=== PATIENT | male | born 1980 | race Caucasian/White ===

== ENCOUNTER 2024-04-18 17:25 | Emergency (ER) | payer BC, SELFPAY ==
--- OUTSIDE RECORDS SUMMARY | 2024-04-18 17:27 | XMS_ITS | Clinical Summary ---
Author Organization [facility] Address [facility] [place] [address] Care Team Providers Care Accounts Payable Supervisor Name Role Phone New Referring, Provider Primary Care Provider Un available Allergies No known active allergies Medications dicyclomine 20 MG tablet Take 1 tablet (20 mg total) by mouth every 6 (six) hours. 20 tablet 04/09/2021 Active Family History Medical History Relation Comments Cancer Maternal Grandmother Relation Status Comments Maternal Grandmother Social History Tobacco Use Types Packs/Day Years Used Date Smoking Tobacco: Former Cigarettes Q uit: 10/09/2014 Smokeless Tobacco: Never Alcohol Use Standard Drinks/Week Comments Yes 0 (1 standard drink = 0.6 oz pur e alcohol) once a month Sex and Gender Information Value Date Recorded Sex Assigned at Not on file Legal Sex Male 4:39 PM CDT Gender Identity Not on file Sexual Orientation Not on file Last Filed Vital Signs Vital Sign Reading Time Taken Comments Blood Pressure 135/101 04/09/2021 9:14 PM EXPORT CLERK Pulse 88 04/09/2021 11:04 PM EXPORT CLERK Temperature 36.5 C (97.7 F) 04/09/2021 9:14 PM EXPORT CLERK Respiratory Rate 18 04/09/2021 11:04 PM EXPORT CLERK Oxygen Saturation 98% 04/09/2021 9:14 PM EXPORT CLERK Inhaled Oxygen Concentration - - Weight 88.7 kg (195 lb 8.8 oz) 04/09/2021 9:14 P M EXPORT CLERK Height 177.8 cm (5' 10 ) 04/09/2021 9:14 PM EXPORT CLERK Body Mass Index 28.06 04/09/2021 9:14 PM EXPORT CLERK Plan of Treatment Health Maintenance Due Date Last Done Comments Annual Physical 1984 Hepatitis C 10/01/1999 DTaP, Tdap and Td Vaccines ( 1 - Tdap) 2000 Hepatitis B Vaccines (1 of 3 - 19+ 3-dose series) 2000 COVID-19 Vaccine (2023-2 5 season) 2023 Influenza Adult (#1) 2023 HPV Vaccines Aged Out No longer eligi ble based on patient's age to complete this topic Meningococcal B Vaccine Aged Out No l onger eligible based on patient's age to complete this topic Meningococcal Vaccine Aged Out No elieser gage eligible based on patient's age to complete this topic Pneumococcal Vaccine: Pediat rics (0 to 5 Years) and At-Risk Patients (6 to 64 Years) Aged Out No longer eligible b ased on patient's age to complete this topic RSV Immunizations Under 20 Months Aged Out No longer eligible based on patient's age to complete this topic Insurance Care Teams Accounts Payable Supervisor Relationship Specialty Start Date End Date New Referring, Provider PCP - General UNKNOWN PHYSICIAN SPECIALTY 08/02/20
[2024-04-18 17:35] VITALS: BP 126/86; PULSE 72; RESP 18; TEMP 36.6; O2SAT 100
--- NOTE | 2024-04-18 17:40 | ED_ITS ---
HPI - General Adult General Chief complaint: Eye Problems Stated complaint: [place] eye RT History of Present Illness HPI narrative: Gelacio Bah Is a 43-year-old male presents today with complaints of having 3 day onset right eye irritation, pinkness to the sclera, itchiness and matted shut in the morning. He states that his daughter is just getting over pinkeye he believes that is what he has now. Denies any fevers, chills, headache, or vision change Related Data Allergies Allergy/AdvReac Type Severity Reaction Status Date / Time No Known Allergies Allergy Verified 04/18/24 17:38 Review of Systems Review of Systems: All systems reviewed & are unremarkable except as noted in HPI and below Exam Narrative: GENERAL: Well-appearing, well-nourished, and in no acute distress. HEAD: Normocephalic, atraumatic. EYES: PERRLA and EOMI, slight injected conjunctiva and watery discharge to the right eye / ENT: Nares clear, no rhinorrhea or epistaxis. Mucous membranes moist. Oropharynx without tonsillar hypertrophy exudate or other lesions. Bilateral T Ms pearly cook nonbulging NECK: Supple. No adenopathy or masses. No carotid bruits or JVD CHEST: Clear to auscultation. No respiratory distress. No wheezes rales or rhonchi HEART: Regular rate and rhythm. No murmur heard. Normal peripheral pulses. EXTREMITIES: Normal range of motion. No edema. SKIN: Warm, dry, no rash. NEURO: No focal deficits. Alert and oriented x3. PSYCH: Normal mood and affect. Course Course Level of Care: Express Care Visit Vital Signs Vital signs: Vital Signs Temperature 36.6 C 04/18/24 17:35 Pulse Rate 72 04/18/24 17:35 Respiratory Rate 04/18/24 17:35 Blood Pressure 126/86 04/18/24 17:35 Pulse Oximetry 100 04/18/24 17:35 Oxygen Delivery Room Air 04/18/24 17:35 Temperature 36.6 C 04/18/24 17:35 Pulse Rate 72 04/18/24 17:35 Respiratory Rate 18 04/18/24 17:35 Blood Pressure 126/86 04/18/24 17:35 Pulse Oximetry 100 04/18/24 17:35 Oxygen Delivery Room Air 04/18/24 17:35 Medical Decision Making MDM Narrative Medical decision making narrative: 43 y/o Male who presents with complaints of right eye irritation mild discomfort drainage matted chest vest 3 days similar to his daughter's pinkeye she just is getting over with today. Denies any vision changes denies headache rates discomfort at a 4/10 EOM intact pupils equal reactive mild injected conjunctiva on the right eye. plan to start polymyxin q3 hours while awake He is agreeable to this plan and denies needing anything further. Medical Records Medical records reviewed: Yes I reviewed the external patient's medical records. Vital Signs Vital Signs: Vital Signs Temperature 36.6 C 04/18/24 17:35 Pulse Rate 72 04/18/24 17:35 Respiratory Rate 18 04/18/24 17:35 Blood Pressure 126/86 04/18/24 17:35 Pulse Oximetry 100 04/18/24 17:35 Oxygen Delivery Room Air 04/18/24 17:35 Temperature 36.6 C 04/18/24 17:35 Pulse Rate 72 04/18/24 17:35 Respiratory Rate 18 04/18/24 17:35 Blood Pressure 126/86 04/18/24 17:35 Pulse Oximetry 100 04/18/24 17:35 Oxygen Delivery Room Air 04/18/24 17:35 Vitals reviewed by me Discharge Plan Discharge Clinical Impression: Bacterial conjunctivitis Patient Disposition: Home, Self-Care Condition: Stable Instructions: Antibiotic Form Additional Instructions: Start using the eye drops to your right eye every 3-4 hours while awake for 10 days You may take Tylenol / Motrin for discomfort If you develop any worsening symptoms or concerns return here or go to the ER. Patient Language: Ukrainian Prescriptions: New polymyxin B sulf-trimethoprim 10,000 unit- 1 mg/mL drops 1 drp RIGHT EYE Q3H 10 Days Qty: 10 0RF Rx Instructions: while awake; do not exceed 6 doses in 24 hours Follow-up/Referrals: PHYSICIAN,SALES OPERATIONS LEAD [Primary Care Provider] - Time of Disposition: 17:43
== END 2024-04-18 17:54 | disposition home or self-care (01) ==
PROVIDERS: Emergency Provider Nurse Practitioner Family
DX: H10.9 Unspecified conjunctivitis (principal)
CPT/HCPCS: 99213; G0463